=== PATIENT | female | born 1960 | race Caucasian/White ===

== ENCOUNTER 2017-09-29 11:29 | Emergency (ER) | payer OTHER ==
[~2017-09-29] VITALS: Ht 162.6 cm; Wt 78.0 kg
[~2017-09-29 11:29] MED LIST: HYDR-762 PO; IBUP-1542 PO
[2017-09-29 11:42] VITALS: Ht 162.6 cm; Wt 78.0 kg
[2017-09-29] MEDS ORDERED: IBUPROFEN 200 MG TAB PO ONE (12:30)
--- NOTE | 2017-09-29 12:33 | ERD ---
ER Documentation Chief Complaint Chief Complaint Pt presents with L leg pain X 1 week, no injury [employer] HPI Otherwise healthy 57-year-old female presents with a chief complaints of diffuse left leg pain 24 hours. Patient denies any injury. Taken ibuprofen 2 with minimal relief. Last ibuprofen taken more than 6 hours ago. No similar symptoms in past. No medical conditions. Pain 10/10. Worse with pressure and walking. No alleviating factors. Denies back pain, loss of bowel or bladder function, urinary retention, numbness, tingling or loss of range of motion. Patient has no other complaints and describes no other associated manifestations. Nursing notes have been reviewed and are consistent with history given. ROS All systems reviewed and are negative except as per history of present illness. Medications Home Meds Active Scripts Amitriptyline Hcl* (Elavil*) 10 Mg Tab, 10 MG PO HS, #30 TAB Prov:RASHAUN BLACKWOOD PA-C 09/29/17 Ibuprofen* (Ibuprofen*) 600 Mg Tablet, 600 MG PO Q6H Y for PAIN, #30 TAB Prov:CURLY PINA MD 04/11/16 Hydrocodone Bit-Acetaminophen* ([place]*) 10-325 Mg Tablet, 1 TAB PO Q6 Y for PAIN , #7 TAB Prov:CURLY PINA MD 04/11/16 Allergies Allergies: Coded Allergies: No Known Allergy (Verified , none, 05/17/13) PMhx/Soc History of Surgery: No Anesthesia Reaction: No Hx Neurological Disorder: Yes (MENTAL RETARDATION) Hx Respiratory Disorders: Yes (COPD) Hx Cardiac Disorders: No Hx Psychiatric Problems: No Hx Miscellaneous Medical Probl: No Hx Alcohol Use: No Hx Substance Use: No Hx Tobacco Use: No Physical Exam Vitals Vital Signs Date Time Temp Pulse Resp B/P Pulse Ox O2 Delivery O2 Flow Rate FiO2 09/29/17 11:42 98.4 90 16 133/72 97 Physical Exam Const: Overweight 57-year-old female in no acute distress Head: Atraumatic Eyes: Normal Conjunctiva ENT: Normal External Ears, Nose and Mouth. Neck: Full range of motion..~ No meningismus. Resp: Clear to auscultation bilaterally Cardio: Regular rate and rhythm, no murmurs Abd: Soft, non tender, non distended. Normal bowel sounds Skin: No petechiae or rashes Back: No midline or flank tenderness Ext: No cyanosis. Mild edema of the left lower extremity. Diffuse tenderness of the left lower extremity. Neur: Awake and alert Psych: Normal Mood and Affect Results 24 hrs Current Medications Medications (Trade) Dose Ordered Sig/Adrianne Route PRN Reason Start Time Stop Time Status Last Admin Dose Admin Ibuprofen (Motrin) 400 mg ONCE ONCE PO 09/29/17 12:30 09/29/17 12:31 DC 09/29/17 12:36 Procedures/MDM Patient presents with a chief complaint of diffuse left lower extremity pain 24 hours. No mechanism of injury. No similar symptoms in past. Mild swelling. Vascular ultrasound was obtained, read by the radiologist, given the following impression: Unremarkable. X-rays of the affected site were obtained, read by the radiologist, given the following impression: Unremarkable This time a little suspicion for DVT, fracture, compartment syndrome, dislocation, aseptic necrosis, or other neurovascular compromise. Most likely diagnosis is left lower extremity pain of unknown etiology. Patient will be treated with Elavil. Spoke to my attending who agrees with the assessment and plan. I have spoke with the patient regarding their condition and future management. They have verbally responded that they understand their status and treatment plan. The patients vitals are stable, and their current condition is appropriate for discharge. The patient will be given discharge instructions with return precautions. Discharge medications: Elavil Departure Diagnosis: Primary Impression: Pain of left leg Condition: Stable Additional Instructions: Follow up with your PCP within the next 1-3 days for a more thorough evaluation and a possible referral to a specialist. Return the the emergency department immediately if symptoms worsen or change. If you have any questions regarding medications, ask your pharmacist or us before you leave. If any adverse reactions occur while taking your medications, discontinue the treatment and return to the emergency department immediately. Take your medications as directed, and complete the entire course of treatment. RASHAUN BLACKWOOD PA-C Sep 29, 2017 12:33
--- NOTE | 2017-09-29 13:24 | RADRPT ---
PROCEDURE: Ultrasound of the left lower extremity venous system. CLINICAL INDICATION: Left leg pain and swelling, deep venous thrombosis TECHNIQUE: Caceres scale with and without compression, color doppler, spectral doppler of the venous system of the left lower extremity was performed. Venous augmentation maneuvers were utilized. COMPARISON: No prior studies are available for comparison. FINDINGS: Common femoral vein: Patent. Femoral vein: Patent. Popliteal vein: Patent. Calf veins: Patent. No soft tissue abnormalities are identified. IMPRESSION: No evidence of a deep vein thrombosis within the left lower extremity. RPTAT: AADD .Luis Zhu MD, MD Date Time Electronically viewed and signed by .Luis Zhu MD, on 09/29/2017 13:24 .B/
--- NOTE | 2017-09-29 13:28 | RADRPT ---
PROCEDURE: XR Foot. CLINICAL INDICATION: Left foot pain TECHNIQUE: 3 views of the left foot are available for review. COMPARISON: None available FINDINGS: The osseous structures demonstrate normal alignment and mineralization. No acute fracture or disloc ation is seen. There is no periostitis or osteochondral lesion identified. There is mild narrowing of the first metatarsal phalangeal joint. There are small plantar and posterior calcaneal spurs. The re is mild spurring along the dorsal margin of the talus and navicular. The soft tissues are unremar kable. IMPRESSION: 1. No acute osseous abnormality identified. 2. Mild degenerative changes of the first metatarsal phalangeal joint and midfoot. 3. Small posterior and plantar calcaneal spurs. RPTAT: HH .Omaira Washington MD, Date Time Electronically viewed and signed by .Omaira Washington MD, on 09/29/2017 13:28 .G/
--- NOTE | 2017-09-29 13:30 | RADRPT ---
PROCEDURE: Left leg series CLINICAL INDICATION: Pain TECHNIQUE: AP and lateral leg series COMPARISON: None available FINDINGS: No acute fractures or dislocations are present. An orthopedic pin is noted in the left proximal tibi a. Mild generalized osteopenia is present with preservation of joint space is noted. No radiodense fore ign bodies are present. Plantar calcaneal spur is noted. IMPRESSION: 1. No acute fractures or dislocations. 2. Orthopedic in present in the proximal tibia 3. Plantar calcaneal spur 4. Mild generalized osteopenia RPTAT: HDC .Alissa Soto MD, Date Time Electronically viewed and signed by .Alissa Soto MD, on 09/29/2017 13:30 .C/
--- NOTE | 2017-09-29 13:32 | RADRPT ---
PROCEDURE: XR Femur. CLINICAL INDICATION: Pain. TECHNIQUE: Left femur x-rays, two views. COMPARISON: None. FINDINGS: Bone density appears normal. Bony cortices are intact. The hip and knee joints are intact. Degenera tive changes of the hip and knee are observed. A single surgical screw is seen within the visualized portion of the proximal tibia. Soft tissues are unremarkable. IMPRESSION: No evidence of acute osseous abnormality. RPTAT: HLST .Jeanie Dumas MD, Date Time Electronically viewed and signed by .Jeanie Dumas MD, on 09/29/2017 13:31 .T/
[2017-09-29] MEDS ORDERED: AMI10 PO (13:34)
== END 2017-09-29 14:26 | disposition home or self-care (01) ==
LOC: FTE 11:29
DX: M79.605 Pain in left leg (principal); J44.9 Chronic obstructive pulmonary disease, unspecified
CPT/HCPCS: 73550; 73590; 73630; 93971; Z7502; Z7610